=== PATIENT | male | born 1940 | race Caucasian/White ===

== ENCOUNTER → 2017-03-08 | Outpatient (CLI) | payer OTHER | LOC: AMBL 19:07 | PROVIDERS: ATTEND Family Medicine | DX: I95.9 Hypotension, unspecified (principal); R55 Syncope and collapse; R11.10 Vomiting, unspecified; I50.9 Heart failure, unspecified ==

== ENCOUNTER 2017-05-07 10:46 | Outpatient (CLI) ==
[2017-05-07 11:19] VITALS: BP 134/66; TEMP 98.2
[2017-05-07] MEDS: PROCRIT SUBCUT STA (11:35)
== END 2017-05-07 10:47 | disposition home or self-care (01) ==
LOC: LAB 10:46
PROVIDERS: ATTEND Internal Medicine Hematology & Oncology
DX: N18.9 Chronic kidney disease, unspecified (principal); D63.1 Anemia in chronic kidney disease
CPT/HCPCS: 36415; 85008; 85025; 96372